=== PATIENT | male | born 1980 | race Caucasian/White ===

== ENCOUNTER 2016-11-26 01:57 | Emergency (ER) | payer OTHER ==
[~2016-11-26 01:57] MED LIST: CEPH500C3 PO; OXYC5 PO; PERC7.5T13 PO
--- NOTE | 2016-11-26 02:09 | PD ---
HPI Chief Complaint: BA Time Seen by Provider: 02:04 Travel History International Travel<30 days: No Contact w/Intl Traveler<30days: No Traveled to known affect area: No History of Present Illness HPI 35-year-old male presents to emergency department under Astudillo act for psychiatric evaluation. Patient denies suicidal or homicidal ideations and does not know why he is here. He states that there is a hit out on him and he saw the people tonight that he believes it went kill him. Denies any psychiatric history. States that he smokes marijuana. 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 Patient has no other symptoms to report at this time. [facility] [place] Past Medical History Medical History: Denies Significant Hx Diminished Hearing: No Immunizations Current: Yes Past Surgical History Body Medical Devices: pins Social History Alcohol Use: Yes (OCC) Tobacco Use: Yes Substance Use: No Allergies-Medications (Allergen,Severity, Reaction): Coded Allergies: No Known Allergies (Unverified , 02/26/15) Reported Meds & Prescriptions Reported Meds & Active Scripts Active Review of Systems Except as stated in HPI: all other systems reviewed are Neg Physical Exam Narrative GENERAL: Well-nourished male patient, ambulatory, anxious, but in no acute distress SKIN: Focused skin assessment warm/dry. HEAD: Atraumatic. Normocephalic. EYES: Pupils equal and round. No scleral icterus. No injection or drainage. ENT: No nasal bleeding or discharge. Mucous membranes pink and moist. NECK: Trachea midline. No JVD. CARDIOVASCULAR: Regular rate and rhythm. No murmur appreciated. RESPIRATORY: No accessory muscle use. Clear to auscultation. Breath sounds equal bilaterally. GASTROINTESTINAL: Abdomen soft, non-tender, nondistended. Hepatic and splenic margins not palpable. MUSCULOSKELETAL: No obvious deformities. No clubbing. No cyanosis. No edema. NEUROLOGICAL: Awake and alert. No obvious cranial nerve deficits. Motor grossly within normal limits. Normal speech. Data Data Last Documented VS Vital Signs Date Time Temp Pulse Resp B/P (MAP) Pulse Ox O2 Delivery O2 Flow Rate FiO2 11/26/16 02:18 98.1 70 12 120/81 (94) 100 Room Air Orders Orders Complete Blood Count With Diff (11/26/16 02:04) Basic Metabolic Panel (Bmp) (11/26/16 02:04) Psych Screen (11/26/16 02:04) Drug Screen, Random Urine (11/26/16 02:04) Alcohol (Ethanol) (11/26/16 02:04) Labs Laboratory Tests Test 11/26/16 02:45 11/26/16 04:00 White Blood Count 12.6 TH/MM3 Red Blood Count 4.91 MIL/MM3 Hemoglobin 14.1 GM/DL Hematocrit 41.9 % Mean Corpuscular Volume 85.3 FL Mean Corpuscular Hemoglobin 28.7 PG Mean Corpuscular Hemoglobin Concent 33.6 % Red Cell Distribution Width 13.3 % Platelet Count 230 TH/MM3 Mean Platelet Volume 8.3 FL Neutrophils (%) (Auto) 78.8 % Lymphocytes (%) (Auto) 12.7 % Monocytes (%) (Auto) 7.3 % Eosinophils (%) (Auto) 0.5 % Basophils (%) (Auto) 0.7 % Neutrophils # (Auto) 9.9 TH/MM3 Lymphocytes # (Auto) 1.6 TH/MM3 Monocytes # (Auto) 0.9 TH/MM3 Eosinophils # (Auto) 0.1 TH/MM3 Basophils # (Auto) 0.1 TH/MM3 CBC Comment DIFF FINAL Differential Comment Blood Urea Nitrogen 13 MG/DL Creatinine 1.05 MG/DL Random Glucose 92 MG/DL Calcium Level 8.5 MG/DL Sodium Level 139 MEQ/L Potassium Level 4.0 MEQ/L Chloride Level 105 MEQ/L Carbon Dioxide Level 28.0 MEQ/L Anion Gap 6 MEQ/L Estimat Glomerular Filtration Rate 80 ML/MIN Ethyl Alcohol Level LESS THAN 3 MG/DL Urine Opiates Screen NEG Urine Barbiturates Screen NEG Urine Amphetamines Screen POS Urine Benzodiazepines Screen NEG Urine Cocaine Screen NEG Urine Cannabinoids Screen POS MDM Medical Decision Making Medical Screen Exam Complete: Yes Emergency Medical Condition: Yes Medical Record Reviewed: Yes Differential Diagnosis Mood disorder versus personality disorder versus adjustment reaction disorder versus substance abuse Narrative Course 35-year-old male presents to the emergency department under Astudillo act for psychiatric evaluation. Patient appears anxious but in no acute distress. His vital signs are stable. Laboratory Tests Test 11/26/16 02:45 11/26/16 04:00 White Blood Count 12.6 TH/MM3 Red Blood Count 4.91 MIL/MM3 Hemoglobin 14.1 GM/DL Hematocrit 41.9 % Mean Corpuscular Volume 85.3 FL Mean Corpuscular Hemoglobin 28.7 PG Mean Corpuscular Hemoglobin Concent 33.6 % Red Cell Distribution Width 13.3 % Platelet Count 230 TH/MM3 Mean Platelet Volume 8.3 FL Neutrophils (%) (Auto) 78.8 % Lymphocytes (%) (Auto) 12.7 % Monocytes (%) (Auto) 7.3 % Eosinophils (%) (Auto) 0.5 % Basophils (%) (Auto) 0.7 % Neutrophils # (Auto) 9.9 TH/MM3 Lymphocytes # (Auto) 1.6 TH/MM3 Monocytes # (Auto) 0.9 TH/MM3 Eosinophils # (Auto) 0.1 TH/MM3 Basophils # (Auto) 0.1 TH/MM3 CBC Comment DIFF FINAL Differential Comment Blood Urea Nitrogen 13 MG/DL Creatinine 1.05 MG/DL Random Glucose 92 MG/DL Calcium Level 8.5 MG/DL Sodium Level 139 MEQ/L Potassium Level 4.0 MEQ/L Chloride Level 105 MEQ/L Carbon Dioxide Level 28.0 MEQ/L Anion Gap 6 MEQ/L Estimat Glomerular Filtration Rate 80 ML/MIN Ethyl Alcohol Level LESS THAN 3 MG/DL Urine Opiates Screen NEG Urine Barbiturates Screen NEG Urine Amphetamines Screen POS Urine Benzodiazepines Screen NEG Urine Cocaine Screen NEG Urine Cannabinoids Screen POS Patient is medically cleared to undergo psychiatric screening for further evaluation and disposition. Diagnosis Primary Impression: Paranoia Additional Impression: Polysubstance abuse Condition: Stable Keri Pruett Nov 26, 2016 02:09
[2016-11-26 02:18] VITALS: BP 120/81; PULSE 70; RESP 12; TEMP 98.1; O2SAT 100
[2016-11-26 03:00] LABS: AUTOMATED NEUTROPHIL # 9.9 TH/MM3 (1.8-7.7); BASOPHIL # 0.1 TH/MM3 (0-0.2); BASOPHIL % 0.7 % (0.0-2.0); EOSINOPHIL # 0.1 TH/MM3 (0-0.4); EOSINOPHIL % 0.5 % (0.0-4.0); HEMATOCRIT 41.9 % (39.0-51.0); HEMO FLAGS DIFF FINAL; LYMPH % 12.7 % (9.0-44.0); LYMPHOCYTE # 1.6 TH/MM3 (1.0-4.8); MEAN CELL VOLUME 85.3 FL (80.0-100.0); MEAN CORPUSCULAR HEMOGLOBIN 28.7 PG (27.0-34.0); MEAN CORPUSCULAR HGB CONC 33.6 % (32.0-36.0); MONO % 7.3 % (0.0-8.0); NEUT % 78.8 % (16.0-70.0); PLATELET COUNT 230 TH/MM3 (150-450); RED BLOOD COUNT 4.91 MIL/MM3 (4.50-5.90); RED CELL DISTRIBUTION WIDTH 13.3 % (11.6-17.2); WHITE BLOOD COUNT 12.6 TH/MM3 (4.0-11.0)
[2016-11-26 03:16] LABS: ANION GAP 6 MEQ/L (5-15); BLOOD UREA NITROGEN 13 MG/DL (7-18); CHLORIDE 105 MEQ/L (98-107); GLOMERULAR FILTRATION RATE 80 ML/MIN (>89); SODIUM (NA) 139 MEQ/L (136-145)
[2016-11-26 03:20] LABS: ALCOHOL LESS THAN 3 MG/DL (0-5)
[2016-11-26 07:13] VITALS: BP 116/70; PULSE 92; RESP 20; TEMP 98.2; O2SAT 97
[2016-11-26 09:44] VITALS: BP 130/78
--- NOTE | 2016-11-26 12:38 | PD.PSY.CON ---
Provisional Diagnosis Admission Date [employer]. Substance induced psychosis, amphetamines and cannabis use disorder [employer]. Deferred [employer]. No significant medical history History of Present Illness Service Psychiatry Consult Requested By Reason for Consult Psychosis Primary Care Physician No Primary Care Physician HPI The patient is a 35-year-old man, [facility], , employed, without any previous psychiatric history, no previous suicidal attempts, no previous psychiatric hospitalizations, no significant medical history, who presents to emergency department under Astudillo act for psychiatric evaluation. Apparently patient called the police about 5 times just today stating that people were following him and making paranoid statements. On psychiatric evaluation today patient admits that he was high in amphetamines and cannabis last night. He was scared after seen"some guys the looks suspicious to me"and he called the police many times, "but obviously I was paranoid due to amphetamines". At this moment the patient denies depressive symptoms, he denies anxiety, he denies psychosis, he denies suicidal and homicidal ideation, he denies visual and auditory hallucinations. She is calm, cooperative and pleasant, logical, coherent and relevant. Oriented 3, no fluctuation of consciousness, no memory deficits, no paranoia present at this moment. He does report occasional use of amphetamine and cannabis. Review of Systems Constitutional: DENIES: Diaphoretic episodes, Fatigue, Fever, Weight gain, Weight loss, Chills, Dizziness, Change in appetite, Night Sweats Endocrine: DENIES: Heat/cold intolerance, Polydipsia, Polyuria, Polyphagia Eyes: DENIES: Blurred vision, Diplopia, Eye inflammation, Eye pain, Vision loss , Photosensitivity, Double Vision Ears, nose, mouth, throat: DENIES: Tinnitus, Hearing loss, Vertigo, Nasal discharge, Oral lesions, Throat pain, Hoarseness, Ear Pain, Running Nose, Epistaxis, Sinus Pain, Toothache, Odynophagia Respiratory: DENIES: Apneas, Cough, Snoring, Wheezing, Hemoptysis, Sputum production, Shortness of breath Gastrointestinal: DENIES: Abdominal pain, Black stools, Bloody stools, Constipation, Diarrhea, Nausea, Vomiting, Difficulty Swallowing, Anorexia Musculoskeletal: DENIES: Joint pain, Muscle aches, Stiffness, Joint Swelling, Back pain, Neck pain Integumentary: DENIES: Abnormal pigmentation, Nail changes, Pruritus, Rash Hematologic/lymphatic: DENIES: Bruising, Lymphadenopathy Immunologic/allergic: DENIES: Eczema, Urticaria Psychiatric: DENIES: Anxiety, Confusion, Mood changes, Depression, Hallucinations, Agitation, Suicidal Ideation, Homicidal Ideation, Delusions Past Family Social History Coded Allergies: No Known Allergies (Unverified , 02/26/15) Family History No family psychiatric history Social History Patient was born and raised in [place], he [facility], he is , unemployed, highest level of education is high school Patient's Strengths (min. 2) Verbal communication Physical Exam Vital Signs Vital Signs Date Time Temp Pulse Resp B/P (MAP) Pulse Ox O2 Delivery O2 Flow Rate FiO2 11/26/16 09:44 88 18 130/78 (95) 100 11/26/16 07:13 98.2 Room Air Lab Results Test 11/26/16 02:45 11/26/16 04:00 White Blood Count 12.6 TH/MM3 Red Blood Count 4.91 MIL/MM3 Hemoglobin 14.1 GM/DL Hematocrit 41.9 % Mean Corpuscular Volume 85.3 FL Mean Corpuscular Hemoglobin 28.7 PG Mean Corpuscular Hemoglobin Concent 33.6 % Red Cell Distribution Width 13.3 % Platelet Count 230 TH/MM3 Mean Platelet Volume 8.3 FL Neutrophils (%) (Auto) 78.8 % Lymphocytes (%) (Auto) 12.7 % Monocytes (%) (Auto) 7.3 % Eosinophils (%) (Auto) 0.5 % Basophils (%) (Auto) 0.7 % Neutrophils # (Auto) 9.9 TH/MM3 Lymphocytes # (Auto) 1.6 TH/MM3 Monocytes # (Auto) 0.9 TH/MM3 Eosinophils # (Auto) 0.1 TH/MM3 Basophils # (Auto) 0.1 TH/MM3 CBC Comment DIFF FINAL Differential Comment Blood Urea Nitrogen 13 MG/DL Creatinine 1.05 MG/DL Random Glucose 92 MG/DL Calcium Level 8.5 MG/DL Sodium Level 139 MEQ/L Potassium Level 4.0 MEQ/L Chloride Level 105 MEQ/L Carbon Dioxide Level 28.0 MEQ/L Anion Gap 6 MEQ/L Estimat Glomerular Filtration Rate 80 ML/MIN Ethyl Alcohol Level LESS THAN 3 MG/DL Urine Opiates Screen NEG Urine Barbiturates Screen NEG Urine Amphetamines Screen POS Urine Benzodiazepines Screen NEG Urine Cocaine Screen NEG Urine Cannabinoids Screen POS Mental Status Examination Appearance man, age appearing, street clothing, calm and cooperative Speech: Unremarkable Orientation: x3 Memory: Unremarkable Thought Process: Logical Thought Content: Unremarkable Hallucination Type: None Attention and Concentration: Good Suicidal Ideation: No Previous Suicide Attempts: No Homicidal Ideation: No Judgment: WNL Affect: Good Affect if Inappropriate: Flat Mood: Appropriate Motor Activity: Normal gait Assessment & Plan Problem List: (1) Substance-induced psychotic disorder with delusions ICD Codes: F19.950 - Other psychoactive substance use, unspecified with psychoactive substance-induced psychotic disorder with delusions Assessment & Plan: On psychiatric evaluation today the patient does not present any concerning, acute or significant symptomatology of depression that requires an immediate psychiatric intervention or attention. Patient denies depressive symptoms, he denies anxiety, he denies sravan or psychosis. Patient is calm and cooperative, logical coherent and relevant. He denies suicidal and homicidal ideation, he denies visual and auditory hallucinations. Patient is clinically sober at this moment. No agitation, no aggressive behavior paranoia or delusions present. Recent episode of paranoia that triggers Astudillo acting the patient seems to be the result of acute substance intoxication rather than to a primary major psychiatric illness decompensation. He does not meet criteria for psychiatric admission. Extensive support, motivation and psychoeducation provided. Astudillo act can be lifted. Assessment & Plan Estimated LOS: Lazarus Acevedo MD Nov 26, 2016 12:38
== END 2016-11-26 10:13 | disposition home or self-care (01) ==
LOC: NEPD 01:57
DX: F22 Delusional disorders (principal)
CPT/HCPCS: 80048; 80307; 85025; 99283